=== PATIENT | female | born 1970 | race Caucasian/White ===

== ENCOUNTER 2017-09-10 20:52 | Inpatient (IN) | payer OTHER ==
[~2017-09-10] VITALS: Ht 157.5 cm; Wt 78.5 kg
[2017-09-10 20:58] VITALS: BP 129/88
--- NOTE | 2017-09-10 21:07 | NUR ---
AMBULATED TO ER BED 2
--- NOTE | 2017-09-10 21:16 | NUR ---
PATIENT PRESENTS TO ED WITH C/O ABDOMINAL PAIN WITH N/V/D SINCE 1800. WENT TO URGENT CARE, MD RECOMMEND TO COME ER. PT SKIN IS PINK/WARM/DRY; AAOX4 WITH EVEN AND STEADY GAIT; LUNGS CLEAR BL; HR EVEN AND REGULAR; PT DENIES ANY FEVER, CP, SOB, OR COUGH AT THIS TIME; PATIENT STATES PAIN OF 10/10 AT THIS TIME; VSS; PATIENT POSITIONED FOR COMFORT; HOB ELEVATED; BEDRAILS UP X2; BED DOWN. ER MD MADE AWARE OF PT STATUS.
--- NOTE | 2017-09-10 21:24 | NUR ---
Shamika dove in [facility] - 09/10/17 at 2124 by [facility] PT. TAKEN BACK TO [facility]
[2017-09-10] MEDS ORDERED: MORPHINE SULFATE 4 MG/ML SYR IVP ONE (22:15)
[2017-09-10] MEDS ORDERED: NACL 0.9% 1,000 ML IV ONE (22:15)
[2017-09-10] MEDS ORDERED: ONDANSETRON 4 MG/2 ML VIAL IVP ONE (22:15)
[2017-09-10 22:35] LABS: BASOPHILS # (AUTO) 0.3 K/uL (0.00-0.22); BASOPHILS % (AUTO) 2.5 % (0.0-2.0); EOSINOPHILS % (AUTO) 0.2 % (0.0-4.0); HEMATOCRIT 42.7 % (36-48); HEMOGLOBIN 14.3 g/dL (12.0-16.0); LYMPHOCYTES # (AUTO) 0.8 K/uL (2.5-16.5); MEAN CORPUSCULAR HEMOGLOBIN 31 pg (27-31); MEAN CORPUSCULAR HGB CONC 33 g/dL (33-37); MEAN CORPUSCULAR VOLUME 91 fL (80-94); MONOCYTES # (AUTO) 0.4 K/uL (0.8-1.0); MONOCYTES % (AUTO) 2.8 % (1.7-9.3); NEUTROPHILS # (AUTO) 12.4 K/uL (1.8-7.7); NEUTROPHILS % (AUTO) 88.5 % (42.2-75.2); PLATELET COUNT (AUTO) 289 K/uL (140-450); RED BLOOD CELL COUNT(AUTO) 4.67 MIL/uL (4.20-5.40); WHITE BLOOD COUNT (AUTO) 13.9 K/uL (4.8-10.8)
[2017-09-10 22:39] LABS: APPEARANCE,URINE SL CLOUDY (CLEAR); BILIRUBIN,URINE NEGATIVE (NEGATIVE); BLOOD, URINE 2+ (NEGATIVE); COLOR,URINE YELLOW (YELLOW); LEUKOCYTE ESTERASE ,URINE NEGATIVE (NEGATIVE); NITRITE, URINE NEGATIVE (NEGATIVE); PH,URINE 6.5 (5.0-9.0); UGLUCOSE NEGATIVE (NEGATIVE)
[2017-09-10 22:51] LABS: ALBUMIN 3.4 g/dL (3.4-5.0); ANION GAP 10.7 (8-16); CARBON DIOXIDE 30.1 mmol/L (21-32); CREATININE 0.8 mg/dL (0.6-1.3); TOTAL BILIRUBIN 0.4 mg/dL (0.0-1.0)
[2017-09-10 22:52] LABS: RBC,URINE 3-10 (FEW) /HPF (0-5); WBC,URINE 0-5 (RARE) /HPF (0-5)
[2017-09-10 22:54] LABS: POTASSIUM 2.8 mmol/L (3.5-5.1)
--- NOTE | 2017-09-10 23:20 | NUR ---
PT TO CT VIA [facility] IN STABLE CONDITION
[2017-09-11] VITALS (10 sets, daily range): BP systolic 101–122; BP diastolic 64–75
[2017-09-11] MEDS ORDERED: POTASSIUM CHL 20 MEQ/D5-1/2NS 1,000 ML IV ONE (00:40)
[2017-09-11] MEDS ORDERED: KCL 20 MEQ/WATER INJ PREMIX 200 ML IV SCH (00:40)
[2017-09-11] MEDS ORDERED: cefOXitin 2,000 MG in DEXTROSE 5% 50 ML IV ONE (00:40)
[2017-09-11] MEDS ORDERED: MORPHINE SULFATE 4 MG/ML SYR IVP PRN (01:05)
[2017-09-11] MEDS ORDERED: ONDANSETRON 4 MG/2 ML VIAL IVP PRN ×2 (01:05→17:35)
[2017-09-11] MEDS: DEXT 5% /NACL 0.9% 1,000 ML IV SCH ×3 (01:05→20:31)
[2017-09-11] MEDS ORDERED: LORazepam 2 MG/ML VIAL IVP PRN (01:05)
[2017-09-11] MEDS ORDERED: MORPHINE SULFATE 2 MG/ML SYR IVP PRN (01:05)
--- NOTE | 2017-09-11 01:19 | NUR ---
PT AMB WITH FAMILY TO [facility].
[2017-09-11] MEDS ORDERED: CEFEPIME 1,000 MG VIAL ONE (01:25)
[2017-09-11] MEDS ORDERED: ONDANSETRON 4 MG/2 ML VIAL ONE (01:30)
[2017-09-11] MEDS ORDERED: ONDANSETRON 4 MG/2 ML VIAL IVP ONE ×2 (01:40→17:00)
--- NOTE | 2017-09-11 02:02 | NUR ---
PATIENT ADMIT DX IS APPENDICITIS. PATIENT COMPLAINS OF MINIMAL PAIN 2/10 UPON ADMISSION AND PATIENT STATES,"ITS TOLERABLE." IVF INFUSING WELL AT THIS TIME RT AC G#18 CURRENTLY PATENT NO INFILTRATION NOTED. SKIN CHECK DONE WITH SAUSAGE MIXER NURSE DESTINY AND SKIN IS CURRENTLY INTACT PATIENT WANTS TO KEEP HER BLACK PANTS ON PATIENT STATES,"IM VERY COLD."AND I GAVE HER A WARM BLANKET. 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 ALLERGY BAND GIVEN TO THE PATIENT SHE IS ALLERGIC TO PCN AND PATIENT STATES SHE BREAKS OUT IN A RASH.PATIENT HAS BEEN INFORMED THAT SHE CANNOT DRINK OR EAT ANYTHING FOR NOW SHE IS AWARE THAT SHE HAS A SURGICAL CONSULT WITH MEGAN ALEXANDER. PLAN OF CARE DISCUSSED WITH THE PATIENT. PATIENT DAUGHTER JASON IS GOING HOME SHE WAS GIVEN A CARD AND PHONE NUMBER SO SHE CAN CALL AND ASK ABOUT HER MOTHER. PATIENT RESTING IN BED CALL LIGHT WITHIN REACH.
--- NOTE | 2017-09-11 02:02 | NUR ---
Patient's Plan of Care was discussed and reviewed with EYEGLASS LENS CUTTER: CHEYENNE ANTONY
--- NOTE | 2017-09-11 02:10 | NUR ---
Patient will be admitted to care of DR PRADHAN. Admited to M/S. Will go to room 112A. Belongings list completed. Report to SOILA QUINN.
--- NOTE | 2017-09-11 04:04 | NUR ---
PATIENT SLEEPING COMFORTABLY IN BED NO DISTRESS.IVF INFUSING WELL IV SITE PATENT.CALL LIGHT WITHIN REACH.
--- NOTE | 2017-09-11 05:30 | NUR ---
I ASKED LICENSED AUDIOLOGIST FOR PATIENT SIX O CLOCK ANTIBIOTIC. HE SAID HE WILL COME AND BRING IT.
--- NOTE | 2017-09-11 06:00 | NUR ---
ASKED COMMUNITY MENT[employer] HEALTH SOCIAL WORKER NATHAN TO BRING ANTIBIOTIC
--- NOTE | 2017-09-11 06:26 | NUR ---
CALLED CRATE TIER NATHAN AGAIN FOR ANTIBIOTICS, HE SAID HE WILL BRING.
--- NOTE | 2017-09-11 06:47 | NUR ---
CALLED RISHI AT PHARMACY TO ASK IF MEFOXIN CAN BE PIGGYBACKED OFF OF THE FLUIDS CURRENTLY RUNNING, MIX OF SODIUM CHLORIDE, DEXTROSE AND KCL. HE STATED YES AND IT IS SAFE.
--- NOTE | 2017-09-11 07:10 | NUR ---
RECEIVED REPORT AT BEDSIDE FROM NIGHTSHIFT NURSE. PATIENT IS IN STABLE CONDITION. PATIENT SHOWS NO SIGNS OF RESPIRATORY DISTRESS OR DEPRESSION. PATIENT HAS AN IV NOTED ON THE LEFT FOREARM RUNNING D5 HALF NS W/ 20 MEQ. IV SITE SHOWS NO SIGNS OF REDNESS AND INFILTRATION. UPDATED BOARD AND PUT CALL LIGHT WITHIN REACH OF PATIENT. PATIENT HAS SOME TENDERNESS TO RIGHT LOWER QUADRANT OF PATIENTS ABDOMEN. IS AWARE. WILL CONTINUE TO MONITOR PATIENT.
--- NOTE | 2017-09-11 07:29 | NUR ---
PATIENT STABLE REPORT ENDORSED TO SOILA DUNN AT BEDSIDE.
--- NOTE | 2017-09-11 08:21 | NUR ---
PATIENT HAS BEEN SCREENED AND CATEGORIZED LOW NUTRITION RISK. PATIENT WILL BE SEEN WITHIN 7 DAYS OF ADMISSION. 09/17/[address]
--- NOTE | 2017-09-11 08:45 | NUR ---
PATIENT'S DAUGHTER IS AT BEDSIDE. PATIENT SHOWS NO SIGNS OF RESPIRATORY DISTRESS OR RESPIRATORY DEPRESSION. CALL LIGHT WITHIN REACH. INSTRUCTED PATIENT TO CALL IF SHE NEEDS ANYTHING.
[2017-09-11] MEDS ORDERED: POTASSIUM CHLORIDE 40 MEQ, LIDOCAINE 1% 25 MG in NACL 0.9% 250 ML IV SCH (09:27)
[2017-09-11 09:43] LABS: ANION GAP 8.9 (8-16); CARBON DIOXIDE 31.1 mmol/L (21-32); CREATININE 0.9 mg/dL (0.6-1.3)
--- NOTE | 2017-09-11 13:59 | NUR ---
CM NOTE INITIAL REVIEW FAXED TO [facility] [phone] GHISLAINE # [phone]
[2017-09-11] MEDS: metroNIDAZOLE 500 MG/NS PREMIX 100 ML IV SCH ×2 (14:15→20:31)
--- NOTE | 2017-09-11 16:48 | NUR ---
PATIENT LEFT THE UNIT FOR SURGERY VIA GURNEY. PATIENT ABLE TO IDENTIFY WHAT PROCEDURE SHE WAS HAVING. PATIENT LEFT IN STABLE CONDITION.
[2017-09-11] MEDS ORDERED: SUCCINYLCHOLINE CHLORIDE 200 MG/10 ML VIAL IV ONE (17:00)
[2017-09-11] MEDS ORDERED: BUPIVACAINE-MPF 0.25% 30 ML VIAL INJ ONE (17:00)
[2017-09-11] MEDS ORDERED: ROCURONIUM 50 MG/5 ML VIAL IV ONE (17:00)
[2017-09-11] MEDS ORDERED: DEXAMETHASONE 4 MG/ML VIAL IVP ONE (17:00)
[2017-09-11] MEDS ORDERED: PROPOFOL 200 MG/20 ML VIAL IV ONE (17:00)
[2017-09-11] MEDS ORDERED: GLYCOPYRROLATE 0.2 MG/ML VIAL IV ONE (17:00)
[2017-09-11] MEDS ORDERED: NEOSTIGMINE 1:1000 10 MG/10 ML VIAL IM ONE (17:00)
[2017-09-11] MEDS ORDERED: SEVOFLURANE 250 ML BTL INH ONE (17:00)
[2017-09-11] MEDS ORDERED: MIDAZOLAM 2 MG/2 ML VIAL ONE (17:08)
[2017-09-11] MEDS ORDERED: fentaNYL 0.05 MG/ML VIAL ONE (17:08)
[2017-09-11] MEDS ORDERED: MEPERIDINE 50 MG/ML SYR ONE (17:08)
[2017-09-11] MEDS ORDERED: LACTATED RINGERS 1,000 ML IV SCH (17:34)
[2017-09-11] MEDS ORDERED: diphenhydrAMINE 50 MG/ML VIAL IVP PRN (17:35)
[2017-09-11] MEDS ORDERED: MEPERIDINE 25 MG/ML SYR IVP PRN (17:35)
[2017-09-11] MEDS ORDERED: HYDROmorphone PFS 2 MG/ML SYR IVP PRN (17:35)
[2017-09-11] MEDS ORDERED: HYDROmorphone PFS 2 MG/ML SYR ONE (18:59)
--- NOTE | 2017-09-11 19:15 | NUR ---
PATIENT IS STILL OFF THE UNIT. GAVE REPORT TO NIGHTSHIFT NURSE. UPDATED NIGHTSHIFT NURSE ON PATIENT'S CONDITION AND HISTORY. UPDATED NURSE ON PATIENTS CONDITION BEFORE SHE LEFT FOR SURGERY. ENDORSED ALL CARE TO NIGHTSHIFT NURSE.
--- NOTE | 2017-09-11 19:16 | NUR ---
RECEIVED REPORT FROM DAY SHIFT RN, PT OFF UNIT.
--- NOTE | 2017-09-11 19:30 | NUR ---
PT ARRIVED FROM PROCEDURE, RECEIVED REPORT FROM OR NURSE. PT DROWSY AT THE MOMENT, ON 5L O2 VIA MASK. PT HAS IV TO RIGHT AC 18G, WITH LR OPEN WIDE. PT HAS 3 ABDOMINAL LAPAROSCOPIC INCISIONS TO ABDOMEN, DRESSING INTACT WITH BLOOD CIRCLED. SAFETY PRECAUTIONS IN PLACE. UPDATED BOARD. VITAL SIGNS WITHIN NORMAL LIMITS, PT DENIES PAIN. PT IN STABLE CONDITION, NO SIGNS OF DISTRESS NOTED. BED IN LOW POSITION, CALL LIGHT WITHIN REACH. WILL CONTINUE TO MONITOR.
--- NOTE | 2017-09-11 22:25 | NUR ---
ADMINISTERED MORPHINE FOR ABDOMINAL PAIN, PT TOLERATED WELL. WILL CONTINUE TO MONITOR.
--- NOTE | 2017-09-11 23:55 | NUR ---
SPOKE TO DR CASTANEDA BECAUSE PT HAD TWO TYPES OF IV FLUIDS ORDERED, LR AND D5NS, TOLD DR PT WAS HERE FOR APPENDICITIS AND HAD AN APPENDECTOMY TODAY. DR CASTANEDA ORDERED FOR LR TO BE DISCONTINUED AND FOR D5NS TO CONTINUE.
--- NOTE | 2017-09-12 04:00 | NUR ---
VITAL SIGNS WITHIN NORMAL LIMITS, PT DENIES PAIN. PT IN STABLE CONDITION, NO SIGNS OF DISTRESS NOTED. BED IN LOW POSITION, CALL LIGHT WITHIN REACH. WILL CONTINUE TO MONITOR.
[2017-09-12] MEDS: metroNIDAZOLE 500 MG/NS PREMIX 100 ML IV SCH (05:09)
--- NOTE | 2017-09-12 07:17 | NUR ---
ENDORSED PT IN STABLE CONDITION TO DAY SHIFT NURSE FOR CONTINUITY OF CARE.
--- NOTE | 2017-09-12 07:18 | NUR ---
RECEIVED REPORT FROM WELD TECHNICIAN NURSE GELA AT BEDSIDE FOR CONTINUITY OF CARE. PT IS AWAKE AND ORIENTED. INTRODUCED SELF AND UPDATED BOARD. PT IS ON RA. O2 SAT 96%. LUNG SOUNDS CLEAR ON AUSCULTATION. BS PRESENT. PT DENIES PAIN AT THIS TIME. 3 INCISIONS ON ABD S/P LAP APPENDECTOMY. NO SIGNS OF DISTRESS. PT IS RESTING IN BED NOW. BED IN LOW POSITION, WHEELS LOCKED, CALL LIGHT WITHIN REACH. WILL CONTINUE TO MONITOR.
[2017-09-12 07:38] LABS: ALBUMIN 2.6 g/dL (3.4-5.0); ANION GAP 11.5 (8-16); CARBON DIOXIDE 28.6 mmol/L (21-32); CREATININE 0.8 mg/dL (0.6-1.3); MAGNESIUM 1.7 mg/dL (1.8-2.4); POTASSIUM 3.1 mmol/L (3.5-5.1); TOTAL BILIRUBIN 0.4 mg/dL (0.0-1.0)
[2017-09-12 08:00] VITALS: BP 107/63
[2017-09-12] MEDS ORDERED: HYDROcodone/APAP 5/325 MG 1 TAB TAB PO PRN ×2 (08:05)
[2017-09-12] MEDS ORDERED: METR500T1 PO (08:09)
[2017-09-12] MEDS ORDERED: CIPR500T4 PO (08:09)
[2017-09-12] MEDS ORDERED: ACET-2869 PO (08:10)
[2017-09-12] MEDS ORDERED: POTASSIUM CHLORIDE 10 MEQ TABER PO SCH (08:25)
[2017-09-12] MEDS: DEXT 5% /NACL 0.9% 1,000 ML IV SCH (09:15)
[2017-09-12] MEDS: MAG SULF 2000 MG/WATER PREMIX 100 ML IV SCH ×2 (09:15→11:39)
--- NOTE | 2017-09-12 09:15 | NUR ---
STARTED NEW IV BAG OF D5NS 1,000ML INFUSING AT 100ML/HR TO RIGHT AC 18G. MAG 1.7 AND K 3.1. ADMINISTERED MAG RIDER IVPB AND K-DUR 40MEQ PO. PT TOLERATED WELL. FAMILY IS AT BEDSIDE. PT GOT UP TO USE BATHROOM. AMBULATED WITH STEADY GAIT. STAND BY ASSIST. DENIES PAIN AT THIS TIME. NO SIGNS OF DISTRESS. BED IN LOW POSITION, WHEELS LOCKED, CALL LIGHT WITHIN REACH. WILL CONTINUE TO MONITOR.
[2017-09-12 12:00] VITALS: BP 128/68
[2017-09-12 12:01] LABS: BASOPHILS # (AUTO) 0.2 K/uL (0.00-0.22); BASOPHILS % (AUTO) 1.6 % (0.0-2.0); HEMATOCRIT 36.3 % (36-48); HEMOGLOBIN 12.1 g/dL (12.0-16.0); LYMPHOCYTES # (AUTO) 1.8 K/uL (2.5-16.5); LYMPHOCYTES % (AUTO) 12.2 % (20.5-51.1); MEAN CORPUSCULAR HEMOGLOBIN 31 pg (27-31); MEAN CORPUSCULAR HGB CONC 33 g/dL (33-37); MEAN CORPUSCULAR VOLUME 92 fL (80-94); MONOCYTES # (AUTO) 0.8 K/uL (0.8-1.0); MONOCYTES % (AUTO) 5.7 % (1.7-9.3); NEUTROPHILS # (AUTO) 11.6 K/uL (1.8-7.7); NEUTROPHILS % (AUTO) 80.5 % (42.2-75.2); PLATELET COUNT (AUTO) 239 K/uL (140-450); RED BLOOD CELL COUNT(AUTO) 3.95 MIL/uL (4.20-5.40); RED CELL DISTRIBUTION WIDTH 12.1 % (11.6-13.7)
[2017-09-12 12:40] LABS: WHITE BLOOD COUNT (AUTO) 14.4 K/uL (4.8-10.8)
--- NOTE | 2017-09-12 13:09 | NUR ---
ADMINISTERED SCHEDULED MEDS. PT TOLERATED WELL. PT FAMILY IS AT BEDSIDE. CHECKED ABD INCISIONS AND TOOK PICTURES OF SURGICAL WOUND. NO DRAINAGE, NO ODOR FROM SITE NOTED. PT DENIES PAIN. WILL CONTINUE TO MONITOR.
--- NOTE | 2017-09-12 14:20 | NUR ---
PT D/C'D TO GO HOME. GAVE D/C FORMS, INSTRUCTIONS, FOLLOW UP APPOINTMENT, RX AND LABS TO PT. PT VERBALIZED UNDERSTANDING AND SIGNED FORMS. REMOVED IV FROM LEFT AC 22G AND R FA 18G. IV CATHETER TIPS INTACT. APPLIED DRESSING AND PRESSURE TO SITE. NO BLEEDING NOTED. REMOVED ID BANDS AND TELE MONITOR. PT CHANGED IN OWN CLOTHES LEFT UNIT VIA WHEELCHAIR ACCOMPANIED BY RN AND FAMILY MEMBERS. PT LEFT IN STABLE CONDITION.
[2017-09-16] MEDS ORDERED: NIFE30TE5 PO (10:20)
[2017-09-16] MEDS ORDERED: ONDA4TAB PO (10:20)
[2017-09-16] MEDS ORDERED: LISI10TA11 PO (10:20)
== END 2017-09-12 14:20 | disposition home or self-care (01) | DRG 225 ==
LOC: MED 20:52 → MTU 09-11 01:13
PROVIDERS: ADMIT Hospitalist; ATTEND Hospitalist
PROC: 0DTJ4ZZ Resection of Appendix, Percutaneous Endoscopic Approach (ICD-10-PCS; principal; 2017-09-11 16:45)
DX: K35.80 Unspecified acute appendicitis (principal); I10 Essential (primary) hypertension; E87.6 Hypokalemia; E66.9 Obesity, unspecified; Z88.0 Allergy status to penicillin; Z98.891 History of uterine scar from previous surgery; Z68.35 Body mass index [BMI] 35.0-35.9, adult; T50.2X5A Adverse effect of carbonic-anhydrase inhibitors, benzothiadiazides and other diuretics, initial encounter; Y92.89 Other specified places as the place of occurrence of the external cause
CPT/HCPCS: 36415; 71045; 80048; 80053; 81001; 82374; 83690; 83735; 85025; 85610; 86886; 86900; 86901; 87081; 87086; 88304; 93005; 96365; 96375; 99285; J0330; J0692; J0694; J1100; J1170; J2001; J2175; J2250; J2270; J2405; J2704; J2710; J3010; J3475; J3480; J3490; J7030; J7042; J7060; Q9967